=== PATIENT | female | born 1975 | race Caucasian/White ===

== ENCOUNTER 2018-10-01 14:47 | Emergency (ER) | payer MEDICARE ==
[~2018-10-01] VITALS: Ht 172.7 cm; Wt 109.1 kg
[2018-10-01 15:02] VITALS: Ht 172.7 cm; Wt 109.1 kg
[2018-10-01] MEDS ORDERED: BACTRIM DS1 TAB PO (15:24)
[2018-10-01] MEDS ORDERED: MUPIROCIN22 GM TOPICAL (15:24)
[2018-10-01] MEDS ORDERED: PREDNISONE10 MG PO (15:25)
[2018-10-01 15:56] VITALS: BP 142/89
== END 2018-10-01 15:56 | disposition home or self-care (01) ==
LOC: D.ER 14:47
DX: S80.861A Insect bite (nonvenomous), right lower leg, initial encounter (principal); W57.XXXA Bitten or stung by nonvenomous insect and other nonvenomous arthropods, initial encounter; Y93.89 Activity, other specified; Y92.019 Unspecified place in single-family (private) house as the place of occurrence of the external cause; G40.909 Epilepsy, unspecified, not intractable, without status epilepticus

== ENCOUNTER 2018-10-18 19:21 | Emergency (ER) | payer MEDICARE, MEDICAID ==
[~2018-10-18] VITALS: Ht 172.7 cm; Wt 108.9 kg
[~2018-10-18 19:21] MED LIST: BACTRIM DS1 TAB PO; MUPIROCIN22 GM TOPICAL; PREDNISONE10 MG PO
[2018-10-18 19:47] VITALS: Ht 172.7 cm; Wt 108.9 kg
[2018-10-18] MEDS ORDERED: TAMIFLU75 MG PO (23:32)
[2018-10-18 23:51] VITALS: BP 160/59
== END 2018-10-18 23:53 | disposition home or self-care (01) ==
LOC: D.ER 19:21
DX: J09.X2 Influenza due to identified novel influenza A virus with other respiratory manifestations (principal); M79.18 Myalgia, other site; R50.9 Fever, unspecified

== ENCOUNTER → 2021-03-09 12:00 | Outpatient (CLI) | payer MEDICARE, MEDICAID ==
[2020-08-31 12:34] VITALS: BMI 36.5
[~2021-03-09 12:00] MED LIST changes: +BENADRYL25 MG PO; +TAMIFLU75 MG PO; +ULTRAM50 MG PO; +[UNRECOGNIZED DRUG - OTHER] PO
== END | disposition home or self-care (01) ==
LOC: D.MRI 12:00
PROVIDERS: ATTEND Nurse Practitioner Family
DX: S83.411A Sprain of medial collateral ligament of right knee, initial encounter (principal)